=== PATIENT | female | born 1950 | race Caucasian/White ===

== ENCOUNTER 2017-02-22 08:34 | Outpatient (CLI) | payer OTHER, MEDICARE ==
[2017-02-22 08:58] LABS: #Eosinphils 0.2 thou/uL (0.0-0.7); #Lymphocytes 1.6 thou/uL (1.20-3.40); #Monocytes 0.6 thou/uL (0.11-0.59); #Neutrophils 2.9 thou/uL (1.40-6.50); %Basophils 0.7 % (0.0-1.0); %Eosinophils 3.5 % (0.0-10.0); %Lymphocytes 30.6 % (21.0-51.0); %Monocytes 11.8 % (0.0-10.0); %Neutrophils 53.5 % (42.0-75.0); Mean Corpuscular HGB CONC 30.6 g/dL (32.0-36.0); Mean Corpuscular Hemoglobin 27.3 pg (27.0-31.0); Platelet Count 277 thou/uL (130-400); RBC Distribution Width 14.1 % (11.5-14.5); Red Blood Cell (RBC) Count 4.78 mill/uL (4.20-5.40); White Blood Cell (WBC) Count 5.4 thou/uL (4.8-10.8)
[2017-02-22 09:57] LABS: ALT (SGPT) 28 U/L (8-55); AST (SGOT) 25 U/L (5-34); Albumin 3.6 g/dL (3.4-4.8); Alkaline Phosphatase 122 U/L (40-150); Anion Gap 11 mmol/L (10-20); BUN (Urea Nitrogen) 9 mg/dL (9.8-20.1); Bilirubin, Total 0.9 mg/dL (0.2-1.2); Calc. Creatinine Clearance 0 mL/min (70-130); Calcium 9.4 mg/dL (7.8-10.44); Carbon Dioxide 27 mmol/L (23-31); Cardiac Risk 3.3 (Less than 4.5); Chloride 106 mmol/L (98-107); Cholesterol 195 mg/dl (< 200 Desired); Estimated GFR-MDRD 85; Globulin 3.3 g/dL (2.4-3.5); Glucose 114 mg/dL (80-115); HDL Cholesterol 59 mg/dL (>60 Neg Risk); LDL Cholesterol, Calculated 122 mg/dL; Protein, Total 6.9 g/dL (6.0-8.3); Sodium 140 mmol/L (136-145); Triglycerides 72 mg/dL (Less than 150)
== END 2017-02-22 08:35 | disposition home or self-care (01) ==
LOC: MADLABBHPM 08:34
PROVIDERS: ATTEND Family Medicine
DX: I10 Essential (primary) hypertension (principal); E03.9 Hypothyroidism, unspecified; E78.00 Pure hypercholesterolemia, unspecified
CPT/HCPCS: 36415; 80053; 80061; 84443; 85025

== ENCOUNTER 2017-11-21 10:28 | Outpatient (CLI) | payer MEDICARE | END 2017-11-21 10:29 | disposition home or self-care (01) | LOC: MADLAB 10:28 | PROVIDERS: ATTEND Family Medicine | DX: R10.9 Unspecified abdominal pain (principal); I10 Essential (primary) hypertension; R53.83 Other fatigue | CPT/HCPCS: 82274 ==

== ENCOUNTER 2019-04-09 21:55 | Emergency (ER) | payer MEDICARE ==
[~2019-04-09 21:55] MED LIST: Iopamidol 370 76% 100 ML VIAL ONE
[2019-04-09] MEDS ORDERED: Sodium Chloride 0.9% 1,000 ML ONE (22:44)
[2019-04-09] MEDS ORDERED: Dicyclomine 10 MG CAP ONE (22:44)
[2019-04-09] MEDS ORDERED: Ondansetron PF 4 MG/2 ML Vial ONE (22:44)
[2019-04-09 23:24] LABS: #Basophils 0.1 thou/uL (0.0-0.2); #Eosinphils 0.1 thou/uL (0.0-0.7); #Lymphocytes 1.3 thou/uL (1.20-3.40); #Monocytes 0.8 thou/uL (0.11-0.59); #Neutrophils 4.7 thou/uL (1.40-6.50); %Basophils 0.8 % (0.0-1.0); %Eosinophils 1.2 % (0.0-10.0); Hemoglobin 13.9 g/dL (12.0-16.0); Mean Corpuscular HGB CONC 30.9 g/dL (32.0-36.0); Mean Corpuscular Hemoglobin 27.5 pg (27.0-31.0); Mean Corpuscular Volume 88.7 fL (78.0-98.0); Mean Platelet Volume 7.1 fL (7.4-10.4); Platelet Count 260 thou/uL (130-400); RBC Distribution Width 12.8 % (11.5-14.5); Red Blood Cell (RBC) Count 5.07 mill/uL (4.20-5.40)
[2019-04-09 23:43] LABS: ALT (SGPT) 17 U/L (8-55); AST (SGOT) 22 U/L (5-34); Albumin 3.9 g/dL (3.4-4.8); Alkaline Phosphatase 100 U/L (40-150); Anion Gap 13 mmol/L (10-20); BUN (Urea Nitrogen) 13 mg/dL (9.8-20.1); Bilirubin, Total 0.6 mg/dL (0.2-1.2); Calc. Creatinine Clearance 0 mL/min (70-130); Calcium 9.6 mg/dL (7.8-10.44); Carbon Dioxide 24 mmol/L (23-31); Chloride 108 mmol/L (98-107); Estimated GFR-MDRD 58; Globulin 3.3 g/dL (2.4-3.5); Glucose 102 mg/dL (80-115); Lipase 18 U/L (8-78); Potassium 3.7 mmol/L (3.5-5.1); Protein, Total 7.2 g/dL (6.0-8.3); Sodium 141 mmol/L (136-145)
[2019-04-10 00:15] LABS: Bilirubin Small (Negative); Blood, Urine Negative (Negative); Clarity Cloudy (Clear); Glucose, Urine (Dipstick) Negative (Negative); Leukocyte Negative (Negative); Nitrite Negative (Negative); Protein, Urine (Dipstick) 100 mg/dL (Neg-Trace); Urobilinogen 0.2 mg/dL (Less than 2)
[2019-04-10 00:20] LABS: Bacteria/HPF 1+ HPF (None Seen); Calcium Oxalate Crystals 2+ HPF (None Seen); RBC/HPF 0-3 HPF (0-3); WBC/HPF 0-3 HPF (0-3); Yeast-Budding Rare HPF (None Seen)
--- NOTE | 2019-04-10 07:35 | CT ---
PRELIMINARY REPORT/[facility]/EMERGENCY AFTER HOURS PROCEDURE PROCEDURE INFORMATION: Exam: CT Abdomen and Pelvis With Contrast Exam date and time: 04/09/2019 11:50 PM Clinical history: 68 years old, female; Nausea and vomiting; Patient HX: N/v/d llq pain TECHNIQUE: Imaging protocol: Computed tomography of the abdomen and pelvis with intravenous contrast. Radiation optimization: All CT scans at this facility use at least one of these dose optimization techniques: automated exposure control; mA and/or kV adjustment per patient size (includes targeted exams where dose is matched to clinical indication); or iterative reconstruction. Contrast material: ISOVUE 370; Contrast volume: 100 ml; Contrast route: LT ARM; COMPARISON: No relevant prior studies available. FINDINGS: Lungs: Minimal right lower lobe medial atelectasis or scarring. Mediastinum: Small-sized hiatal hernia. Liver: Normal. Gallbladder and bile ducts: Cholelithiasis. Pancreas: Normal. Spleen: Normal. Adrenals: Normal. Kidneys and ureters: Simple left upper pole renal cyst. Stomach and bowel: Normal. Appendix: Appendix is normal. Intraperitoneal space: Unremarkable. No free air. No significant fluid collection. Vasculature: Multiple phleboliths within the pelvis. Lymph nodes: Unremarkable. No enlarged lymph nodes. Bladder: Unremarkable as visualized. Reproductive: Unremarkable as visualized. Bones/joints: Degenerative changes of the hips and sacroiliac joints. Multilevel thoracolumbar spine degenerative changes. Soft tissues: Normal. IMPRESSION: No acute abdominal or pelvic abnormality. Thank you for allowing us to participate in the care of your patient. Dictated and Authenticated by: Justo Haywood MD 04/10/2019 12:35 AM Central Time ([place] & [place]) FINAL REPORT CT Abdomen Pelvis W Con History: Abdominal pain Comparison: None available Findings: Moderate-sized sliding hiatal hernia. Cholelithiasis. Low-grade scarring along the superior mesenteric artery and celiac trunk. No free intraperitoneal gas or fluid. Punctate nonobstructing calculi left inferior renal collecting system and right superior renal collecting system. Impression: Findings and impression are concordant with the preliminary report. Transcribed Date/Time: 04/10/2019 8:02 AM
== END 2019-04-10 01:00 | disposition home or self-care (01) ==
LOC: MADERS 21:55
DX: K52.9 Noninfective gastroenteritis and colitis, unspecified (principal); E03.9 Hypothyroidism, unspecified; F41.0 Panic disorder [episodic paroxysmal anxiety]
CPT/HCPCS: 74177; 80053; 81003; 81015; 83605; 83690; 85025; 96361; 96374; J2405; J7050; Q9967

== ENCOUNTER 2020-12-02 09:40 | Outpatient (CLI) | payer MEDICARE ==
[2020-12-02 11:06] LABS: ALT (SGPT) 21 U/L (8-55); AST (SGOT) 23 U/L (5-34); Albumin 4.1 g/dL (3.4-4.8); Alkaline Phosphatase 104 U/L (40-110); Anion Gap 17 mmol/L (10-20); BUN (Urea Nitrogen) 13 mg/dL (9.8-20.1); Bilirubin, Total 1.4 mg/dL (0.2-1.2); Calc. Creatinine Clearance 0 mL/min (70-130); Calcium 9.8 mg/dL (7.8-10.44); Carbon Dioxide 24 mmol/L (23-31); Cardiac Risk 3.8 (Less than 4.5); Chloride 105 mmol/L (98-107); Cholesterol 221 mg/dl (< 200 Desired); Globulin 3.1 g/dL (2.4-3.5); Glucose 136 mg/dL (80-115); HDL Cholesterol 58 mg/dL (>60 Neg Risk); LDL Cholesterol, Calculated 146 mg/dL; Potassium 4.1 mmol/L (3.5-5.1); Protein, Total 7.2 g/dL (5.8-8.1); Sodium 142 mmol/L (136-145); Triglycerides 84 mg/dL (Less than 150)
[2020-12-02 11:16] LABS: #Basophils 0.1 thou/uL (0.0-0.2); #Eosinphils 0.1 thou/uL (0.0-0.7); #Lymphocytes 1.5 thou/uL (1.20-3.40); #Monocytes 0.7 thou/uL (0.11-0.59); #Neutrophils 5.5 thou/uL (1.40-6.50); %Basophils 0.6 % (0.0-1.0); %Eosinophils 0.9 % (0.0-10.0); %Monocytes 9.2 % (0.0-10.0); %Neutrophils 70.3 % (42.0-75.0); Hemoglobin 14.9 g/dL (12.0-16.0); Mean Corpuscular HGB CONC 29.1 g/dL (32.0-36.0); Mean Corpuscular Hemoglobin 29.7 pg (27.0-31.0); Mean Corpuscular Volume 101.8 fL (78.0-98.0); Mean Platelet Volume 8.3 fL (7.4-10.4); Platelet Count 278 thou/uL (130-400); RBC Distribution Width 15.7 % (11.5-14.5); Red Blood Cell (RBC) Count 5.01 mill/uL (4.20-5.40); White Blood Cell (WBC) Count 7.9 thou/uL (4.8-10.8)
[2020-12-02 11:18] LABS: Anisocytosis SLIGHT = 6-15 cells (100X) (0-5/hpf); Hypochromia SLIGHT = 6-15 cells (100X) (0-5/hpf); Ovalocytes SLIGHT = 2-5 cells (100X) (0-1/hpf)
[2020-12-02 11:19] LABS: Platelet Morphology Comment Appears Adequate
[2020-12-02 11:23] LABS: Thyroid Stimulating Hormone 0.1201 uIU/mL (0.35-4.94)
[2020-12-02 17:42] LABS: T4 11.8 ug/dL (4.87-11.72)
== END 2020-12-02 09:41 | disposition home or self-care (01) ==
LOC: MADLAB 09:40
PROVIDERS: ATTEND Family Medicine
DX: R06.02 Shortness of breath (principal); E03.9 Hypothyroidism, unspecified; R53.83 Other fatigue; E66.9 Obesity, unspecified
CPT/HCPCS: 36415; 71046; 80053; 80061; 82607; 84436; 84443; 85025

== ENCOUNTER 2021-12-13 20:45 | Outpatient (CLI) | payer MEDICARE ==
[2021-12-13 21:23] LABS: #Basophils 0.1 thou/uL (0.0-0.2); #Eosinphils 0.1 thou/uL (0.0-0.7); #Lymphocytes 1.8 thou/uL (1.20-3.40); #Monocytes 0.6 thou/uL (0.11-0.59); #Neutrophils 2.1 thou/uL (1.40-6.50); %Basophils 1.8 % (0.0-1.0); %Eosinophils 2.8 % (0.0-10.0); %Lymphocytes 37.4 % (21.0-51.0); Hemoglobin 14.4 g/dL (12.0-16.0); Mean Corpuscular HGB CONC 30.9 g/dL (32.0-36.0); Mean Corpuscular Hemoglobin 26.4 pg (27.0-31.0); Mean Corpuscular Volume 85.5 fL (78.0-98.0); Mean Platelet Volume 8.6 fL (7.4-10.4); Platelet Count 231 thou/uL (130-400); RBC Distribution Width 14.1 % (11.5-14.5); Red Blood Cell (RBC) Count 5.45 mill/uL (4.20-5.40); White Blood Cell (WBC) Count 4.7 thou/uL (4.8-10.8)
[2021-12-13 21:38] LABS: ALT (SGPT) 21 U/L (8-55); AST (SGOT) 24 U/L (5-34); Albumin 3.6 g/dL (3.4-4.8); Alkaline Phosphatase 123 U/L (40-110); Anion Gap 15 mmol/L (10-20); BUN (Urea Nitrogen) 13 mg/dL (9.8-20.1); Calc. Creatinine Clearance 0 mL/min (70-130); Calcium 9.6 mg/dL (7.8-10.44); Carbon Dioxide 25 mmol/L (23-31); Cardiac Risk 3.3 (Less than 4.5); Chloride 106 mmol/L (98-107); Cholesterol 207 mg/dl (< 200 Desired); Globulin 3.5 g/dL (2.4-3.5); Glucose 110 mg/dL (83-110); HDL Cholesterol 62 mg/dL (>60 Neg Risk); LDL Cholesterol, Calculated 134 mg/dL; Potassium 4.2 mmol/L (3.5-5.1); Protein, Total 7.1 g/dL (5.8-8.1); Sodium 142 mmol/L (136-145); Triglycerides 55 mg/dL (Less than 150)
[2021-12-13 21:58] LABS: Thyroid Stimulating Hormone Less than 0.0025 uIU/mL (0.35-4.94)
[2021-12-14 11:19] LABS: Hemoglobin A1c 5.6 % (4.0-6.0)
[2021-12-14 11:24] LABS: Iron 145 ug/dL (50-170); Iron Binding Capacity, Total 424 mcg/dL (265-497)
[2021-12-14 11:43] LABS: Free T4 (Free Thyroxine) 1.38 ng/dL (0.70-1.48)
[2021-12-14 11:44] LABS: Vitamin D, 25 Hydroxy 20.6 ng/ml (> 30.0)
[2021-12-14 13:30] LABS: Follicle Stimulating Hormone 33.62 mIU/mL (See Ranges); Luteinizing Hormone 20.93 mIU/mL (See Ranges)
== END 2021-12-13 20:46 | disposition home or self-care (01) ==
LOC: MADLAB 20:45
PROVIDERS: ATTEND Internal Medicine Endocrinology, Diabetes & Metabolism
DX: M81.8 Other osteoporosis without current pathological fracture (principal); R53.82 Chronic fatigue, unspecified; R94.6 Abnormal results of thyroid function studies
CPT/HCPCS: 36415; 80053; 80061; 82306; 82670; 83001; 83002; 83036; 83516; 83540; 83550; 83970; 84439; 84443; 85025; 85652; 86376

== ENCOUNTER 2022-06-10 12:03 | Emergency (ER) | payer MEDICARE | END 2022-06-10 12:32 | disposition home or self-care (01) | LOC: MADERS 12:03 | DX: L42 Pityriasis rosea (principal); E03.9 Hypothyroidism, unspecified; E05.90 Thyrotoxicosis, unspecified without thyrotoxic crisis or storm; Z79.899 Other long term (current) drug therapy | CPT/HCPCS: 99282 ==

== ENCOUNTER 2025-03-01 18:41 | Outpatient (CLI) | payer MEDICARE ==
[2025-03-01 19:33] LABS: Cardiac Risk 3.6 (Less than 4.5); Cholesterol 225.0 mg/dl (< 200 Desired); HDL Cholesterol 63.0 mg/dL (>60 Neg Risk); LDL Cholesterol, Calculated 148.0 mg/dL; Triglycerides 69.0 mg/dL (Less than 150)
[2025-03-01 19:47] LABS: Thyroid Stimulating Hormone 1.2178 uIU/mL (0.35-4.94)
[2025-03-02 13:33] LABS: Free T4 (Free Thyroxine) 1.06 ng/dL (0.70-1.48)
== END 2025-03-01 18:42 | disposition home or self-care (01) ==
LOC: MADLAB 18:41
PROVIDERS: ATTEND Internal Medicine Endocrinology, Diabetes & Metabolism
DX: E78.5 Hyperlipidemia, unspecified (principal); R94.6 Abnormal results of thyroid function studies
CPT/HCPCS: 80061; 84439; 84443

== ENCOUNTER 2025-04-05 22:08 | Emergency (ER) | payer MEDICARE ==
[2025-04-05 22:29] LABS: Glucose, Urine (Dipstick) 100 mg/dL (Negative); Leukocyte Trace (Negative); Protein, Urine (Dipstick) 30 mg/dL (Neg-Trace); Specific Gravity, Urine Greater/Equal 1.030 (1.005-1.030)
[2025-04-05 22:30] LABS: Bacteria/HPF 1+ HPF (None Seen); CAUTI Indications for Culture Pelvic or flank pain; RBC/HPF 0-3 HPF (0-3); Urine Culture Reflex No No
[2025-04-05] MEDS ORDERED: Famotidine 20 MG TAB ONE (22:34)
[2025-04-05] MEDS ORDERED: Mag-Al 1200 mg/1200 mg/30 ML UDCUP ONE (22:34)
[2025-04-05] MEDS ORDERED: Lidocaine Viscous Sol 2% 15 ml UD Cup ONE (22:34)
[2025-04-05 22:38] LABS: #Basophils 0.1 thou/uL (0.0-0.2); #Eosinophils 0.2 thou/uL (0.0-0.7); #Lymphocytes 1.8 thou/uL (1.20-3.40); #Monocytes 0.6 thou/uL (0.11-0.59); #Neutrophils 3.4 thou/uL (1.40-6.50); %Basophils 1.1 % (0.0-1.0); %Eosinophils 2.8 % (0.0-10.0); %Lymphocytes 30.1 % (21.0-51.0); %Monocytes 10.1 % (0.0-10.0); %Neutrophils 55.9 % (42.0-75.0); Hematocrit 44.3 % (36.0-47.0); Hemoglobin 14.1 g/dL (12.0-16.0); Mean Corpuscular Hemoglobin 28.5 pg (27.0-31.0); Mean Corpuscular Volume 89.9 fl (78.0-98.0); Platelet Count 288 10x3/uL (130-400); Red Blood Cell (RBC) Count 4.93 mill/uL (4.20-5.40); White Blood Cell (WBC) Count 6.0 10x3/uL (4.8-10.8)
[2025-04-05 22:55] LABS: ALT (SGPT) 23 U/L (Less than 34); AST (SGOT) 34 U/L (11-34); Albumin 3.5 g/dL (3.1-4.5); Alkaline Phosphatase 118 U/L (40-110); Anion Gap 15 mmol/L (10-20); BUN (Urea Nitrogen) 12 mg/dL (9.8-20.1); Bilirubin, Total 0.7 mg/dL (0.3-1.2); Calc. Creatinine Clearance 0 mL/min (70-130); Calcium 8.9 mg/dL (7.8-10.44); Carbon Dioxide 22 mmol/L (23-31); Chloride 106 mmol/L (98-107); Globulin 3.6 g/dL (2.4-3.5); Glucose 120 mg/dL (83-110); Lipase 14 U/L (8-78); Potassium 3.7 mmol/L (3.5-5.1); Sodium 139 mmol/L (136-145)
== END 2025-04-06 00:21 | disposition home or self-care (01) ==
LOC: MADERS 22:08
DX: R10.13 Epigastric pain (principal); N39.0 Urinary tract infection, site not specified; E03.9 Hypothyroidism, unspecified; Z79.890 Hormone replacement therapy
CPT/HCPCS: 74177; 80053; 81001; 83690; 85025; 93005; Q9967

== ENCOUNTER 2025-04-20 18:51 | Emergency (ER) | payer MEDICARE ==
[2025-04-20] MEDS ORDERED: Ondansetron PF 4 MG/2 ML Vial ONE (19:08)
[2025-04-20 19:33] LABS: #Basophils 0.1 thou/uL (0.0-0.2); #Eosinophils 0.2 thou/uL (0.0-0.7); #Lymphocytes 1.2 thou/uL (1.20-3.40); #Monocytes 0.6 thou/uL (0.11-0.59); #Neutrophils 4.3 thou/uL (1.40-6.50); %Basophils 0.8 % (0.0-1.0); %Eosinophils 2.6 % (0.0-10.0); %Lymphocytes 19.2 % (21.0-51.0); %Monocytes 9.2 % (0.0-10.0); %Neutrophils 68.1 % (42.0-75.0); Hematocrit 48.1 % (36.0-47.0); Hemoglobin 14.7 g/dL (12.0-16.0); Mean Corpuscular Hemoglobin 27.5 pg (27.0-31.0); Mean Corpuscular Volume 90.0 fl (78.0-98.0); Platelet Count 339 10x3/uL (130-400); Red Blood Cell (RBC) Count 5.34 mill/uL (4.20-5.40); White Blood Cell (WBC) Count 6.3 10x3/uL (4.8-10.8)
[2025-04-20 19:51] LABS: ALT (SGPT) 66 U/L (Less than 34); AST (SGOT) 100 U/L (11-34); Albumin 3.6 g/dL (3.1-4.5); Alkaline Phosphatase 154 U/L (40-110); Anion Gap 17 mmol/L (10-20); BUN (Urea Nitrogen) 11 mg/dL (9.8-20.1); Bilirubin, Total 0.9 mg/dL (0.3-1.2); Calc. Creatinine Clearance 0 mL/min (70-130); Calcium 9.4 mg/dL (7.8-10.44); Carbon Dioxide 22 mmol/L (23-31); Chloride 105 mmol/L (98-107); Globulin 3.7 g/dL (2.4-3.5); Glucose 102 mg/dL (83-110); Lipase 13 U/L (8-78); Potassium 3.9 mmol/L (3.5-5.1); Sodium 140 mmol/L (136-145)
[2025-04-20] MEDS ORDERED: HYDROcodone/Acetaminophen 10/325 mg Tablet ONE (20:24)
== END 2025-04-20 20:36 | disposition home or self-care (01) ==
LOC: MADERS 18:51
DX: R10.13 Epigastric pain (principal); R10.11 Right upper quadrant pain; R16.0 Hepatomegaly, not elsewhere classified; R79.89 Other specified abnormal findings of blood chemistry; E03.9 Hypothyroidism, unspecified; E05.90 Thyrotoxicosis, unspecified without thyrotoxic crisis or storm; Z79.890 Hormone replacement therapy
CPT/HCPCS: 80053; 83690; 85025; 96374; 96375